=== PATIENT | female | born 1995 | race Two or more races ===

== ENCOUNTER 2017-12-17 16:36 | Emergency (ER) | payer OTHER ==
[2017-12-17 17:41] LABS: PLATELET COUNT 243 10^3/uL (150-400)
--- NOTE | 2017-12-17 18:04 | EDPHY ---
H & P Time Seen by Provider: 12/17/17 17:25 HPI/ROS: HPI 6 weeks , cramping, rectal bleeding. 22-year-old female currently 6 weeks , sent from the [facility]. Complaint of rectal bleeding x2 days. The patient states that 2 days ago she had a very hard bowel movement. She had some blood streaked in the stool of this bowel movement and also some blood on the toilet paper. She reports that then the next day she developed some diarrhea and had some blood mixed in with her diarrhea. She is feeling better at this time. She was sent from the [facility] for evaluation in the emergency department. She denies any vaginal bleeding. She reports that she has had some lower abdominal cramping. ROS: Constitutional: No fever, no chills. No weakness. Eyes: No discharge. No changes in vision. ENT: No sore throat. No nasal congestion or rhinorrhea. Respiratory: No cough. No shortness of breath. Cardiac: No chest pain, no palpitations. Gastrointestinal: As above, no vomiting. Genitourinary: No hematuria. No dysuria or increased frequency with urination. As above. No vaginal bleeding. Musculoskeletal: No back pain. No neck pain. No myalgias or arthralgias. Skin: No rashes. Neurological: No headache. No focal weakness or altered sensation. Past medical history: ADHD. Social history: Nonsmoker. [employer]. No alcohol. Physical Exam: General Appearance: Alert, no distress. This patient is responding to questions appropriately and in full sentences. This patient appears well- hydrated and well-nourished. Eyes: Pupils equal and round no pallor or injection. No lid edema, erythema or injection. Gastrointestinal: Abdomen is soft and nontender, no masses, bowel sounds normal. No focal tenderness at McBurney's point. No Nance sign. Rectal exam: No external hemorrhoids. No gross bleeding. Normal tone on digital exam and no gross blood on digital exam. Brown stool. Neurological: Motor sensory function is grossly intact. Cranial nerves are normal. Gait is normal. Skin: Warm and dry, no rashes. Musculoskeletal: No CVA tenderness on palpation. Extremities are symmetrical. All joints range without pain or impingement. Psychiatric: No agitation. No depression. Database: EKG: Imaging: Pelvic ultrasound: Left ovarian likely corpus luteum cyst. 6 week IUP with normal heart rate. Otherwise normal study. Results were discussed with staff radiologist. Procedures: Emergency department course: Triage vital signs reviewed. She is mildly tachycardic. Triage vital signs otherwise normal. Patient is not tachycardic on my exam. 6:53 a.m., patient re-evaluated, resting comfortably at this time. Vital signs reviewed and are normal. Stool occult blood testing negative. Patient feels comfortable going home and I feel she is safe for discharge. Follow-up and return to emergency department precautions have been reviewed with her. All of her questions were answered. She was discharged from the emergency department in good condition. Differential Diagnosis: The differential diagnosis on this patient includes but is not limited to internal versus external hemorrhoid. Threatened , ectopic unlikely. This represents a partial list of diagnoses considered. These considerations are based on history, physical exam, past history, reassessment and diagnostic testing. Smoking Status: Former smoker Constitutional: Initial Vital Signs Temperature (C) 36.7 C 12/17/17 16:39 Heart Rate 117 H 12/17/17 16:39 Respiratory Rate 18 12/17/17 16:39 Blood Pressure 131/84 H 12/17/17 16:39 O2 Sat (%) 90 L 12/17/17 16:39 O2 Delivery Mode Room Air Allergies/Adverse Reactions: No Known Allergies Allergy (Unverified 12/17/17 16:39) Home Medications: Medication Instructions Recorded Adderall 10 MG (*) 12/17/17 Medical Decision Making - Data Points Laboratory Results: Laboratory Results 12/17/17 17:26 12/17/17 17:26 Medications Given: Discontinued Medications Acetaminophen (Tylenol) 650 mg PO EDNOW ONE Stop: 12/17/17 18:35 Last Admin: 12/17/17 18:36 Dose: 650 mg Departure - Departure Disposition: Home, Routine, Self-Care Clinical Impression: Rectal bleeding, Diarrhea, Intrauterine Condition: Good Instructions: (ED), Rectal Bleeding (ED) Additional Instructions: Read and follow provided instructions. Keep well hydrated. Drink lots of fluids. Follow-up with your primary care physician at the [facility] in 1-2 days for re-evaluation. Return to the emergency department for worsening bleeding, lower abdominal pain , vaginal bleeding or other serious concerns. Referrals: Artman,Merrilynn J, NATIONAL SECRETARY [Primary Care Provider] - As per Instructions
[2017-12-17] MEDS ORDERED: ACETAMINOPHEN 325 MG TAB ONE (18:33)
[2017-12-17] MEDS ORDERED: ACETAMINOPHEN 325 MG TAB PO ONE (18:34)
[2017-12-17 18:58] VITALS: BP 119/81
== END 2017-12-17 18:58 | disposition home or self-care (01) ==
DX: O99.89 Other specified diseases and conditions complicating pregnancy, childbirth and the puerperium (principal); K62.5 Hemorrhage of anus and rectum; R10.9 Unspecified abdominal pain; R19.7 Diarrhea, unspecified; Z3A.01 Less than 8 weeks gestation of pregnancy